=== PATIENT | female | born 1990 | race Caucasian/White ===

== ENCOUNTER 2017-11-14 00:06 | Emergency (ER) | payer OTHER ==
[2017-11-14 00:08] VITALS: BP 129/82; PULSE 91; RESP 16; TEMP 98; O2SAT 100
[2017-11-14 00:55] LABS: AMORPHOUS SEDIMENT, URINE RARE; BILIRUBIN, URINE NEG (NEG); BLOOD, URINE NEG (NEG); GLUCOSE,URINE NEG (NEG); KETONE, URINE NEG (NEG); MUCUS URINE FEW /lpf (OCC); NITRITE,URINE NEG (NEG); PH, URINE 6.5 (5.0-8.5); SQUAMOUS EPITHELIAL CELL URINE <1 /hpf (0-5); URINE COLOR LIGHT-YELLOW (YELLW/STRAW); URINE LEUKOCYTE ESTERASE TRACE (NEG)
[2017-11-14] MEDS ORDERED: SODIUM CHLOR 0.9% 1000 ML INJ 1,000 ML IV ONE (01:40)
[2017-11-14 02:27] LABS: AUTOMATED NEUTROPHIL # 6.7 TH/MM3 (1.8-7.7); BASOPHIL % 0.5 % (0.0-2.0); EOSINOPHIL # 0.1 TH/MM3 (0-0.4); EOSINOPHIL % 1.2 % (0.0-4.0); HEMATOCRIT 39.9 % (35.0-46.0); HEMOGLOBIN 13.9 GM/DL (11.6-15.3); LYMPH % 21.1 % (9.0-44.0); LYMPHOCYTE # 2.1 TH/MM3 (1.0-4.8); MEAN CELL VOLUME 90.6 FL (80.0-100.0); MEAN CORPUSCULAR HEMOGLOBIN 31.5 PG (27.0-34.0); MEAN CORPUSCULAR HGB CONC 34.7 % (32.0-36.0); MEAN PLATELET VOLUME 9.1 FL (7.0-11.0); MONO % 9.7 % (0.0-8.0); NEUT % 67.5 % (16.0-70.0); PLATELET COUNT 140 TH/MM3 (150-450); RED CELL DISTRIBUTION WIDTH 12.5 % (11.6-17.2)
[2017-11-14] MEDS ORDERED: ONDANSETRON HCL 4 MG/2 ML VIAL IV ONE (02:30)
[2017-11-14 02:42] LABS: ALBUMIN 3.8 GM/DL (3.4-5.0); ALT (GPT) 16 U/L (10-53); AST (GOT) 14 U/L (15-37); BICARBONATE 25.6 MEQ/L (21.0-32.0); BLOOD UREA NITROGEN 11 MG/DL (7-18); CALCIUM 8.2 MG/DL (8.5-10.1); CHLORIDE 105 MEQ/L (98-107); CREATININE 0.65 MG/DL (0.50-1.00); GLOMERULAR FILTRATION RATE 109 ML/MIN (>89); GLUCOSE,RANDOM 89 MG/DL (74-106); LIPASE 128 U/L (73-393); SODIUM (NA) 139 MEQ/L (136-145)
[2017-11-14 02:45] LABS: ALKALINE PHOSPHATASE 78 U/L (45-117); TOTAL BILIRUBIN ADULT 0.2 MG/DL (0.2-1.0)
--- NOTE | 2017-11-14 03:05 | PD ---
HPI Chief Complaint: Related Problem Time Seen by Provider: 00:28 Travel History International Travel<30 days: No Contact w/Intl Traveler<30days: No Traveled to known affect area: No History of Present Illness HPI The patient is a 27 year old female who presents to the [facility] emergency department with a history of nausea associated with pelvic pain most prominent in the right lower quadrant that began 2 days ago. The patient reports that the pain as a cramping sensation and comes and goes. The patient reports that she has been trying to get . She reports that her last menstrual cycle was on October 18 and lasted for 5 days, however she is concerned that she may be as she took a home test that was faintly positive. She reports that she has an [facility] at [place]. She reports that in February 2017 and she had an ectopic is tube was resected, however she is unsure which side. She denies having any vomiting. Otherwise on review of systems, she denies having any recent fevers, cough, congestion, neck pain, chest pain, shortness of breath, diarrhea, urinary symptoms, vaginal bleeding, vaginal discharge, or neurologic symptoms. [facility] Past Medical History Narrative Medical The patient's past medical history is significant for having irregular menstrual cycles, endometriosis, history of a prior ectopic . Medical History: Denies Significant Hx Tetanus Vaccination: < 5 Years Influenza Vaccination: No ?: Unknown LMP: 10/19/17 : 2 Para: 1 Miscarriage: 1 Ectopic : Yes Tubal Ligation: Yes (on one side) Past Surgical History Narrative Surgical The patient's past surgical history is significant for ectopic removal , tonsil and adenoidectomy. Abdominal Surgery: Yes (endometriosis, ) Tonsillectomy: Yes (and addenoids) Social History Alcohol Use: No Tobacco Use: No Substance Use: No Allergies-Medications (Allergen,Severity, Reaction): Coded Allergies: cefaclor (Verified Allergy, Unknown, Hives, 11/14/17) Review of Systems Except as stated in HPI: all other systems reviewed are Neg General / Constitutional: No: Fever Eyes: No: Visual changes HENT: No: Headaches Cardiovascular: No: Chest Pain or Discomfort Respiratory: No: Shortness of Breath Gastrointestinal: Positive: Nausea, Abdominal Pain Genitourinary: No: Dysuria, Discharge, Vaginal Bleeding Musculoskeletal: No: Pain Skin: No Rash Neurologic: No: Weakness Psychiatric: No: Depression Endocrine: No: Polydipsia Hematologic/Lymphatic: No: Easy Bruising Physical Exam Narrative General: The patient is a well-developed well-nourished female in no acute distress. Head and Neck exam: Head is normocephalic atraumatic. Eyes: EOMI, pupils are equal round and reactive to light. Nose: Midline septum with pink mucous membranes Mouth: Dentition unremarkable. Moist mucus membranes. Posterior oropharynx is not erythematous. No tonsillar hypertrophy. Uvula midline. Airway patent. Neck: No palpable lymphadenopathy. No nuchal rigidity. No thyromegaly. Cardiovascular: Regular rate and rhythm without murmurs, gallops, or rubs. Lungs: Clear to auscultation bilaterally. No wheezes, rhonchi, or rales. Abdomen: Soft, without tenderness to palpation in all 4 quadrants of the abdomen. No guarding, rebound, or rigidity. Normal bowel sounds are audible. No tenderness on palpation of McBurney's point. Negative Navarrete's sign. The patient denies having any abdominal pain currently. Extremities: No clubbing, cyanosis, or edema. 2+ pulses in all 4 extremities. Back: No spinous process tenderness to palpation. No costovertebral angle tenderness to palpation. Neurologic Exam: Grossly nonfocal. Skin Exam: No rash noted. Intact skin that is warm and dry. Data Data Last Documented VS Vital Signs Date Time Temp Pulse Resp B/P (MAP) Pulse Ox O2 Delivery O2 Flow Rate FiO2 11/14/17 00:08 98.0 91 16 129/82 (98) 100 Room Air Orders Orders Urinalysis - C+S If Indicated (11/14/17 00:29) Ed Urine Pregnancytest Poc (11/14/17 00:29) Complete Blood Count With Diff (11/14/17 01:40) Comprehensive Metabolic Panel (11/14/17 01:40) Lipase (11/14/17 01:40) Urinalysis - C+S If Indicated (11/14/17 01:40) Beta Hcg (Quant/Titer) (11/14/17 01:40) Iv Access Insert/Monitor (11/14/17 01:40) Ecg Monitoring (11/14/17 01:40) Oximetry (11/14/17 01:40) Complete Rh (11/14/17 01:40) Sodium Chlor 0.9% 1000 Ml Inj (Ns 1000 M (11/14/17 01:40) Ondansetron Inj (Zofran Inj) (11/14/17 02:30) Labs Laboratory Tests Test 11/14/17 00:35 11/14/17 02:00 Urine Color LIGHT-YELLOW Urine Turbidity CLEAR Urine pH 6.5 Urine Specific Gore 1.009 Urine Protein NEG mg/dL Urine Glucose (UA) NEG mg/dL Urine Ketones NEG mg/dL Urine Occult Blood NEG Urine Nitrite NEG Urine Bilirubin NEG Urine Urobilinogen LESS THAN 2.0 MG/DL Urine Leukocyte Esterase TRACE Urine RBC 1 /hpf Urine WBC 1 /hpf Urine Squamous Epithelial Cells <1 /hpf Urine Amorphous Sediment RARE Urine Mucus FEW /lpf Microscopic Urinalysis Comment CULT NOT INDICATED White Blood Count 10.0 TH/MM3 Red Blood Count 4.40 MIL/MM3 Hemoglobin 13.9 GM/DL Hematocrit 39.9 % Mean Corpuscular Volume 90.6 FL Mean Corpuscular Hemoglobin 31.5 PG Mean Corpuscular Hemoglobin Concent 34.7 % Red Cell Distribution Width 12.5 % Platelet Count 140 TH/MM3 Mean Platelet Volume 9.1 FL Neutrophils (%) (Auto) 67.5 % Lymphocytes (%) (Auto) 21.1 % Monocytes (%) (Auto) 9.7 % Eosinophils (%) (Auto) 1.2 % Basophils (%) (Auto) 0.5 % Neutrophils # (Auto) 6.7 TH/MM3 Lymphocytes # (Auto) 2.1 TH/MM3 Monocytes # (Auto) 1.0 TH/MM3 Eosinophils # (Auto) 0.1 TH/MM3 Basophils # (Auto) 0.0 TH/MM3 CBC Comment DIFF FINAL Differential Comment Blood Urea Nitrogen 11 MG/DL Creatinine 0.65 MG/DL Random Glucose 89 MG/DL Total Protein 7.0 GM/DL Albumin 3.8 GM/DL Calcium Level 8.2 MG/DL Alkaline Phosphatase 78 U/L Aspartate Amino Transf (AST/SGOT) 14 U/L Alanine Aminotransferase (ALT/SGPT) 16 U/L Total Bilirubin 0.2 MG/DL Sodium Level 139 MEQ/L Potassium Level 3.9 MEQ/L Chloride Level 105 MEQ/L Carbon Dioxide Level 25.6 MEQ/L Anion Gap 8 MEQ/L Estimat Glomerular Filtration Rate 109 ML/MIN Lipase 128 U/L Human Chorionic Gonadotropin, Quant 9 MIU/ML MDM Medical Decision Making Medical Screen Exam Complete: Yes Emergency Medical Condition: Yes Medical Record Reviewed: Yes Differential Diagnosis , versus ectopic , versus false positive test Narrative Course During the course of the patients emergency department visit, the patients history, examination, and differential diagnosis were reviewed with the patient. A bedside test was done along with a urinalysis. The outside test appeared to be faintly positive. The patient was placed on a surveillance system monitor with oximetry and frequent blood pressure monitoring. The patient had IV access obtained and blood work sent for analysis. The patient was initially provided normal saline 1 L IV fluid bolus, Zofran 4 mg IV. The patients laboratory studies were reviewed and remarkable for a CBC that is remarkable for a platelet count of 140, CMP is unremarkable, quantitative beta hCG is 9, lipase 128, urinalysis unremarkable The patient's quantitative beta-hCG is indeterminate. The patient could be very early in . The patient was instructed to call her [employer] in the morning to schedule a follow-up appointment. The patient is given an outpatient lab slip for quantitative beta hCG to be repeated in 2 days. We discussed that should roughly double in 2 days. She is instructed that if she develops any recurrent abdominal pain, vaginal bleeding, or lightheaded sensation. She should follow back up in the emergency department immediately. The patient was agreeable with this plan. The patient is resting comfortably and feels better, is alert and in no distress. The patients results and examination findings were discussed with the patient. The repeat examination is unremarkable and benign. The history, exam, diagnostic testing, and current condition do not suggest any significant pathology to warrant further testing, continued ED treatment, admission, or surgical evaluation at this point. The vital signs have been stable. The patient does not have uncontrollable pain, intractable vomiting, or other significant symptoms. The patient's condition is stable and appropriate for discharge. The patient will pursue further outpatient evaluation with a primary care physician or other designated or consulting physician as indicated in the discharge instructions. The patient expressed understanding and was agreeable with this plan. Diagnosis Primary Impression: Early stage of Additional Impression: Nausea Referrals: Rn Emergency 2 days Patient Instructions: Abdominal Pain in (ED), General Instructions Additional Instructions: The patient is given an outpatient lab slip to repeat her quantitative beta hCG in 2 days. Disposition: 01 DISCHARGE HOME Condition: Stable Vidya Daniel MD Nov 14, 2017 03:05
[2017-11-14] MEDS ORDERED: LORazepam 2 MG/ML VIAL IV PUSH ONE (03:15)
== END 2017-11-14 03:26 | disposition home or self-care (01) ==
LOC: NEPC 00:06
DX: O26.891 Other specified pregnancy related conditions, first trimester (principal); R10.2 Pelvic and perineal pain; R11.0 Nausea; Z3A.00 Weeks of gestation of pregnancy not specified
CPT/HCPCS: 80053; 81001; 83690; 84702; 84703; 85025; 86901; 99284; J2405; J7030